=== PATIENT | female | born 1990 | race Caucasian/White ===

== ENCOUNTER → 2018-05-31 | Outpatient (CLI) | payer SELFPAY ==
[2018-05-31 12:20] LABS: HCT 35.9 % (34.0-46.0); HGB 11.6 gm/dL (11.4-16.0); MCH 27.8 pg (25.0-35.0); MCHC 32.3 g/dL (31.0-37.0); MCV 86.1 fL (80.0-100.0); Mean Platelet Volume 7.1; Platelet Count 195 k/uL (150-450); RBC 4.17 m/uL (3.80-5.40); RDW 13.3 % (11.5-15.5); WBC 10.1 k/uL (3.8-10.6)
== END | disposition home or self-care (01) ==
LOC: LABWHC1 11:03
PROVIDERS: ATTEND Obstetrics & Gynecology
DX: Z34.02 Encounter for supervision of normal first pregnancy, second trimester (principal); Z3A.00 Weeks of gestation of pregnancy not specified
CPT/HCPCS: 36415; 82950; 85027

== ENCOUNTER 2018-06-11 10:38 | Outpatient (CLI) | payer SELFPAY ==
[2018-06-11 11:14] VITALS: BP 117/59; PULSE 83; RESP 18; TEMP 98.8
--- NOTE | 2018-06-12 06:41 | P.MSEPDOC ---
Presenting Problems - Arrival Data Date of Arrival on Unit: 06/11/18 Time of Arrival on Unit: 11:00 Mode of Transport: Ambulatory - Complaint OB-Reason for Admission/Chief Complaint: Vaginal Bleeding Comment: pt arrived c/o brownish red discharge or spotting when she wipes. pt has had intercourse within the last couple of days Medical History - Information : 2 Para: 1 Term: 1 : 0 Abortions: Spontaneous or Elective: 0 Number of Living Children: 1 - Gestational Age Gestational Age by LIVE (wks/days): 29 Weeks and 6 Days - History Complications: Smoker Review of Systems - Review of Systems Constitutional: No problems Breast: No problems ENT: No problems Cardiovascular: No problems Respiratory: No problems Gastrointestinal: No problems Genitourinary: No problems Musculoskeletal: No problems Neurological: No problems Skin: No problems Vital Signs - Temperature Temperature: 98.8 F Temperature Source: Oral - Pulse Right Brachial Pulse Rate: 83 Pulse Assessment Method: Automatic Cuff - Respirations Respiratory Rate: 18 Oxygen Delivery Method: Room Air O2 Sat by Pulse Oximetry: 97 - Blood Pressure Right Arm Blood Pressure: 117/59 Blood Pressure Mean: 78 Blood Pressure Source: Automatic Cuff Medical Screen Scoring (Pre) - Cervical Exam Dilation: 0 cm = 0 Membranes: Intact - Uterine Contractions Frequency: N/A Duration: N/A Intensity: N/A - Maternal Vital Signs Maternal Temperature: N/A Maternal Blood Pressure: N/A Signs of Preeclampsia: N/A Maternal Respirations: N/A - Pain Assessment Pain Scale Used: Numeric (1 - 10) Pain Intensity: 1 Pain Management Goal: 1 Pain Behavior: Vocalization - Maternal Trauma Maternal Trauma: N/A - Assessment Baseline FHR: 130 Heart Rate - NICHD Category: Category I (Normal) = 0 NST: Reactive Position: N/A Station: N/A - Total Score Total Score (Pre): 0 - Level of Risk Level of Risk: Low (0-5) Physician Notification (Pre) - Physician Notified Physician Notified Date: 06/11/18 Physician Notified Time: 11:50 Spoke With: dr joya New Order Received: Yes - Notification Comment Comment: may discharge to home after watching for 1 hr and have pt f/u on Disposition - Disposition OB Disposition: Discharge to home Discharge Date: 06/11/18 Discharge Time: 12:35 I agree with the RN Medical Screening Exam: Yes Risk & Benefit of care provided described in d/c instruction: Yes Diagnosis: FALSE LABOR BEFORE 37 COMPLETED WEEKS OF GEST, THIRD TRI
== END 2018-06-11 12:35 | disposition home or self-care (01) ==
LOC: FBPOP 10:38
PROVIDERS: ATTEND Obstetrics & Gynecology
DX: O47.03 False labor before 37 completed weeks of gestation, third trimester (principal); O99.333 Smoking (tobacco) complicating pregnancy, third trimester; Z3A.29 29 weeks gestation of pregnancy
CPT/HCPCS: 59025; 99213

== ENCOUNTER 2018-08-14 06:01 | Inpatient (IN) | payer BC, OTHER ==
--- NOTE | 2018-08-13 07:06 | P.HPOB ---
History of Present Illness H&P Date: 08/13/18 Chief Complaint: Recent herpes outbreak at term, for section This patient is a pleasant 28-year-old 2 para 1 female estimated date of confinement 08/21/2018 estimated gestational age 39-0/7 weeks who presents to labor and delivery for primary section secondary to recent herpes outbreak. Patient is a known history of genital herpes was placed on prophylactic antivirals at 36 weeks. Patient however developed in active herpes outbreak approximately 2 weeks ago. Patient I discussed recent outbreak and current recommendations are to proceed with section for delivery. Patient's care has also been complicated by a positive chlamydial culture with a negative test of cure. Otherwise is been uncomplicated. Review of Systems Gastrointestinal: Reports heartburn Genitourinary: Reports Menstruation: Reports amenorrhea Past Medical History Past Medical History: No Reported History History of Any Multi-Drug Resistant Organisms: None Reported Past Surgical History: Appendectomy Past Anesthesia/Blood Transfusion Reactions: No Reported Reaction Past Psychological History: No Psychological Hx Reported Smoking Status: Current every day smoker Past Alcohol Use History: None Reported Past Drug Use History: None Reported Medications and Allergies Home Medications Medication Instructions Recorded Confirmed Type Pnv No.95/Ferrous Fum/Folic AC 1 each PO 06/11/18 History [ Multivitamin Tablet] Allergies Allergy/AdvReac Type Severity Reaction Status Date / Time No Known Allergies Allergy Verified 06/11/18 11:04 Exam - OBG Physical Exam Abdomen: bowel sounds normal, no diffuse tenderness, no bruit present, no guarding noted, no hepatomegaly, no splenomegaly, no mass Vulva: both: normal Vagina: normal moisture, no discharge Cervix: no lesion (Cervix in the office was closed.), no discharge Uterus: enlarged (Fundal height is consistent with a term .) Results blood work shows she is O positive, rubella immune, RPR is nonreactive , hepatitis B is negative, HIV is nonreactive, Glucola was normal, group B strep was negative, she did have a first trimester positive chlamydia with a negative test of cure 2. Ultrasounds have been normal. Assessment and Plan Assessment: This is a pleasant 28-year-old 2 para 1 female 39-0/7 weeks gestation with recent genital herpes infection who is presenting for primary section secondary to this. Patient I discussed the surgery and risks including risks of infection, bleeding, possible injury bowel, bladder, vessels, and other organs. Patient understands risk of DVT and pulmonary embolism. All the patient's questions are answered and a written consent is obtained. (1) Third trimester Status: Acute Code(s): Z34.93 - ENCNTR FOR SUPRVSN OF NORMAL PREG, UNSP, THIRD TRIMESTER SNOMED Code(s): 56421569 (2) Genital herpes affecting in third trimester Status: Acute Code(s): O98.313 - OTH INFECT W SEXL MODE OF TRANSMISS COMP PREG , THIRD TRI; A60.09 - HERPESVIRAL INFECTION OF OTHER UROGENITAL TRACT SNOMED Code(s): 522411590692170
[2018-08-14 06:13] VITALS: BMI 27.8
[2018-08-14] MEDS ORDERED: LACTATED RINGERS 1,000 ML IV SCH ×2 (06:13→09:39)
[2018-08-14] MEDS ORDERED: CITRIC ACID-SODIUM CITRATE 15 ML CUP PO ONE (06:13)
[2018-08-14] MEDS ORDERED: LACTATED RINGERS 1,000 ML IV ONE (06:13)
[2018-08-14 06:30] LABS: Basophils % (A) 0 %; Eosinophils # (A) 0.1 k/uL (0-0.7); Eosinophils % (A) 1 %; HGB 12.6 gm/dL (11.4-16.0); Lymphocytes # (A) 2.1 k/uL (1.0-4.8); Lymphocytes % (A) 20 %; MCH 27.6 pg (25.0-35.0); MCV 83.7 fL (80.0-100.0); Mean Platelet Volume 7.9; Monocytes # (A) 0.4 k/uL (0-1.0); Monocytes % (A) 3 %; Neutrophils # (A) 7.6 k/uL (1.3-7.7); Neutrophils % (A) 73 %; Platelet Count 210 k/uL (150-450); RBC 4.54 m/uL (3.80-5.40); RDW 13.9 % (11.5-15.5); WBC 10.4 k/uL (3.8-10.6)
[2018-08-14] MEDS ORDERED: ceFAZolin IN SWFI 2 GM/20 ML SYRINGE IVP ONE (07:15)
[2018-08-14] MEDS ORDERED: NALBUPHINE 10 MG/ML VIAL (10ML MDV) ONE (07:50)
[2018-08-14] MEDS ORDERED: DEXAMETHASONE SOD PHOS (MDV) 100 MG/10 ML VIAL ONE (07:50)
[2018-08-14] MEDS ORDERED: ePHEDrine SULFATE/0.9% NACL/PF 50 MG/5 ML SYRINGE IV ONE (07:50)
[2018-08-14] MEDS ORDERED: HYDROmorphone (PF) 1 MG/ML ONE (07:50)
[2018-08-14] MEDS ORDERED: KETOROLAC 30 MG/ML 1 ML VIAL ONE (07:50)
[2018-08-14] MEDS ORDERED: OXYTOCIN 10 UNIT/ML 1 ML VIAL ONE (07:50)
[2018-08-14] MEDS ORDERED: MORPHINE SULFATE (PF) 0.3 MG/0.3 ML SYR ONE (07:50)
[2018-08-14] MEDS ORDERED: ONDANSETRON 4 MG/2 ML VIAL ONE (07:50)
--- NOTE | 2018-08-14 08:36 | P.OP ---
Date of Procedure: 08/14/18 Preoperative Diagnosis: #1: 39 3/7 weeks . #2: Recent genital HSV outbreak Postoperative Diagnosis: Same Procedure(s) Performed: Primary low transverse section Anesthesia: spinal Surgeon: Yuri Arango Senior Asset Manager #1: Pallavi Bro Estimated Blood Loss (ml): 600 Pathology: other (Placenta) Condition: stable Disposition: floor Indications for Procedure: Please see dictated H&P for intimate details of this patient's admission. Brief summary is a pleasant 28-year-old 2 para 1 female 39-3/7 weeks gestation admitted to labor and delivery for primary section secondary to recent active herpes outbreak. Patient understands this surgery and risks including risks of infection, bleeding, possible injury bowel, bladder, vessels , and/or other organs. Patient understands risk of DVT and pulmonary embolism. All the patient's questions are answered and a written consent is obtained. Operative Findings: As a vigorous viable female infant Apgars 8 and 9 delivery time was 0807 hrs. Description of Procedure: This patient has a Garcia catheter placed to straight drain. She is subsequently taken to the operating room where she sat up and spinal anesthetic is administered without incident. With an adequate level of anesthesia she has abdominal prep and drape. Scalpels and taken Pfannenstiel skin incision is made. A second scalpel is taken down the fascia and the fascia scored with a knife. Fascial incision extended bilaterally using the Blount scissors. Fascia is dissected off the rectus muscles sharply and the rectus muscles are . The peritoneum was then identified and entered sharply. Peritoneal incision extended superior and inferior without difficulty. Bladder blade is then placed. Bladder peritoneum was taken off the lower uterine segment sharply. Scalpels and taken low transverse uterine incision is then made. Using a hemostat I into the uterine cavity bluntly and there is loss of clear fluid. This incision is extended bluntly. Infant's head is then guided through the incision with fundal pressure the mouth and nares are bulb suctioned. There is no evidence of nuchal cord. We then have delivery the rest this infant's body. This is a vigorous viable female Apgars are 8 and 9 delivery time was 0807 hrs. After delivery of the the umbilical cord is doubly clamped and cut is handed off to the nurses in attendance. Cord blood is obtained. Placenta is manually extracted intact. Uterus is then externalized and uterine incision demarcated with Maurice clamps and closed using 0 Vicryl running locked fashion 2 layers. Excellent hemostasis is noted bladder peritoneum was then closed using a 3-0 Vicryl in the usual fashion. The excess fluid is removed from the abdomen and pelvis. Uterus placed back into the abdomen. Parietal peritoneum was then closed using a 0 Vicryl running fashion. Rectus muscles are reapproximated using 0 Vicryl interrupted fashion. Fascia is then closed using an 0 PDS in a running fashion. Fascial incision is intact and hemostatic. Subcutaneous tissues and closed using a 3-0 Vicryl. Skin is and closed using chantel. All counts are correct 3. There are no complications. Patient is taken to her birthing suite in satisfactory condition.
[2018-08-14] MEDS ORDERED: NALOXONE 0.4 MG/ML 1 ML VIAL IV PRN (09:39)
[2018-08-14] MEDS ORDERED: METOCLOPRAMIDE 5 MG/ML 2 ML VIAL IVP PRN (09:39)
[2018-08-14] MEDS ORDERED: ZOLPIDEM 5 MG TAB PO PRN (09:39)
[2018-08-14] MEDS ORDERED: LANOLIN CREAM 5 GM TUBE TOPICAL PRN (09:39)
[2018-08-14] MEDS ORDERED: diphenhydrAMINE 25 MG CAP PO PRN (09:39)
[2018-08-14] MEDS ORDERED: KETOROLAC 30 MG/ML 1 ML VIAL IVP PRN (09:39)
[2018-08-14] MEDS ORDERED: SIMETHICONE 80 MG CHEWABLE PO PRN (09:39)
[2018-08-14] MEDS ORDERED: diphenhydrAMINE 50 MG/ML 1 ML VIAL IVP PRN (09:39)
[2018-08-14] MEDS ORDERED: ACETAMINOPHEN TAB 325 MG TAB PO PRN (09:39)
[2018-08-14] MEDS ORDERED: ONDANSETRON 4 MG/2 ML VIAL IVP PRN (09:39)
[2018-08-14] MEDS ORDERED: OXYTOCIN 20 UNITS/1000 ML NS 1,000 ML IV SCH (09:39)
[2018-08-14] MEDS: SENNOSIDES-DOCUSATE SODIUM 1 EACH TAB PO SCH ×2 (12:59→20:28)
[2018-08-15] MEDS: HYDROcodone/APAP 5-325MG 1 EACH TAB PO PRN ×3 (03:54→20:29)
--- NOTE | 2018-08-15 06:30 | P.PNOBGPC ---
Subjective - Subjective Patient reports: Reports appetite normal, Reports voiding normally, Reports pain well controlled, Reports ambulating normally : doing well Objective - Vital Signs Latest vital signs: Vital Signs Temp Pulse Resp BP Pulse Ox 08/15/18 04:00 77 16 110/67 08/15/18 00:00 82 16 126/81 08/14/18 20:00 97.8 F 95 16 132/86 99 08/14/18 16:00 97.5 F L 75 16 125/68 98 08/14/18 12:00 97.6 F 76 16 129/77 99 08/14/18 10:27 77 16 128/72 08/14/18 10:01 96.7 F L 70 16 127/78 08/14/18 09:31 65 16 130/73 08/14/18 09:16 60 16 120/67 08/14/18 09:01 63 16 127/70 08/14/18 08:46 96.8 F L 66 16 125/66 08/14/18 08:31 83 16 125/70 Intake and Output 08/14/18 08/14/18 08/15/18 14:59 22:59 06:59 Output Total 900 1400 Balance -900 -1400 Output: Urine 550 1400 Uretheral (Garcia) 400 Estimated Blood Loss 350 Other: # Voids 1 # Emeses 1 - Exam Lungs: bilateral: normal Chest: Normal S1, Normal S2 Extremities: Present: normal Abdomen: Present: normal appearance, soft. Absent: distention, tenderness Incision: Present: normal, dry, intact Uterus: Present: normal, firm Assessment and Plan Assessment: Post operative day #1. Patient is resting without complaints. Vital signs are stable she is afebrile. Uterus is firm nontender and her incision is intact and dry. Patient is tolerating regular diet and urinating without difficulty. Plan today is to allow the patient to shower, check a CBC, encourage more ambulation. (1) Third trimester Current Visit: No Status: Acute Code(s): Z34.93 - ENCNTR FOR SUPRVSN OF NORMAL PREG, UNSP, THIRD TRIMESTER SNOMED Code(s): 53441019 (2) Genital herpes affecting in third trimester Current Visit: No Status: Acute Code(s): O98.313 - OTH INFECT W SEXL MODE OF TRANSMISS COMP PREG, THIRD TRI; A60.09 - HERPESVIRAL INFECTION OF OTHER UROGENITAL TRACT SNOMED Code(s): 414899442910213
[2018-08-15 07:06] LABS: Basophils % (A) 0 %; Eosinophils # (A) 0.1 k/uL (0-0.7); Eosinophils % (A) 0 %; HCT 32.7 % (34.0-46.0); HGB 10.7 gm/dL (11.4-16.0); Lymphocytes # (A) 1.9 k/uL (1.0-4.8); Lymphocytes % (A) 13 %; MCH 27.6 pg (25.0-35.0); MCHC 32.7 g/dL (31.0-37.0); MCV 84.6 fL (80.0-100.0); Monocytes # (A) 0.4 k/uL (0-1.0); Monocytes % (A) 3 %; Neutrophils # (A) 12.3 k/uL (1.3-7.7); Neutrophils % (A) 83 %; Platelet Count 191 k/uL (150-450); RBC 3.87 m/uL (3.80-5.40); RDW 13.8 % (11.5-15.5); WBC 14.9 k/uL (3.8-10.6)
[2018-08-15] MEDS: IBUPROFEN 600 MG TAB PO PRN ×2 (08:08→17:23)
[2018-08-15] MEDS: SENNOSIDES-DOCUSATE SODIUM 1 EACH TAB PO SCH ×2 (08:10→23:14)
--- NOTE | 2018-08-15 13:11 | P.PN ---
Progress Note - Text Anesthesia POD 1. Patient is status post section under spinal anesthesia with intra-thecal preservative free morphine 300 g. Mild pruritus, good post-op analgesia, and no headache or other complication.
[2018-08-15 23:54] VITALS: BP 123/73; PULSE 86; RESP 18; TEMP 98.2
[2018-08-16] MEDS: IBUPROFEN 600 MG TAB PO PRN (00:57)
--- NOTE | 2018-08-16 05:57 | P.PNOBGPC ---
Subjective - Subjective Patient reports: Reports appetite normal, Reports voiding normally, Reports pain well controlled, Reports ambulating normally : doing well Objective - Vital Signs Latest vital signs: Vital Signs Temp Pulse Resp BP Pulse Ox 08/15/18 23:52 98.2 F 86 18 123/73 99 08/15/18 16:00 98.7 F 96 16 125/81 98 08/15/18 12:00 98.8 F 76 17 121/61 98 08/15/18 08:00 98.3 F 87 16 135/81 98 Intake and Output 08/15/18 08/15/18 08/16/18 14:59 22:59 06:59 Other: # Voids 1 1 1 # Bowel Movements 0 0 - Exam Lungs: bilateral: normal Chest: Normal S1, Normal S2 Extremities: Present: normal Abdomen: Present: normal appearance, soft. Absent: distention, tenderness Incision: Present: normal, dry, intact Uterus: Present: normal, firm - Labs Labs: Abnormal Lab Results - Last 24 Hours (Table) 08/15/18 Range/Units 06:37 WBC 14.9 H (3.8-10.6) k/uL Hgb 10.7 L (11.4-16.0) gm/dL Hct 32.7 L (34.0-46.0) % Neutrophils # 12.3 H (1.3-7.7) k/uL Assessment and Plan Assessment: Postoperative day #2. Patient is resting without complaints and wishes to go home. Vital signs are stable she is afebrile. Uterus is firm nontender her incision is intact and dry. CBC yesterday was normal. I impression this is a normal course. Plan is to continue routine postoperative care discharge home later today. (1) Third trimester Current Visit: No Status: Acute Code(s): Z34.93 - ENCNTR FOR SUPRVSN OF NORMAL PREG, UNSP, THIRD TRIMESTER SNOMED Code(s): 94957957 (2) Genital herpes affecting in third trimester Current Visit: No Status: Acute Code(s): O98.313 - OTH INFECT W SEXL MODE OF TRANSMISS COMP PREG, THIRD TRI; A60.09 - HERPESVIRAL INFECTION OF OTHER UROGENITAL TRACT SNOMED Code(s): 598759875130792
--- NOTE | 2018-08-16 06:03 | P.DS ---
Providers Date of admission: 08/14/18 06:01 Expected date of discharge: 08/16/18 Attending physician: Yuri Arango Primary care physician: Stated None - Discharge Diagnosis(es) (1) Third trimester Current Visit: No Status: Acute (2) Genital herpes affecting in third trimester Current Visit: No Status: Acute Hospital Course: Please see dictated H&P for intimate details of this patient's admission. Brief summary this is a pleasant 28-year-old 2 para 1 female 39-3/7 weeks gestation who is admitted to labor and delivery for elective section secondary to active herpes at term. Patient undergoes primary low transverse section for viable female infant. Please see dictated operative note. Postoperative 2 patient's felt be stable for discharge home follow up with me in 1 week. Patient Condition at Discharge: Good Plan - Discharge Summary New Discharge Prescriptions: New HYDROcodone/APAP 5-325MG [[place] 5-325] 1 each PO Q4HR PRN #18 tab PRN Reason: Moderate Pain Ibuprofen [Motrin] 600 mg PO Q6HR PRN #40 tab PRN Reason: Mild Pain Or Fever >= 100.5 No Action Pnv No.95/Ferrous Fum/Folic AC [ Multivitamin Tablet] 1 each PO ONCE Acyclovir 1 tab PO ONCE Discharge Medication List Pnv No.95/Ferrous Fum/Folic AC [ Multivitamin Tablet] 1 each PO ONCE 01/23 [History] Acyclovir 1 tab PO ONCE 08/14/18 [History] HYDROcodone/APAP 5-325MG [[place] 5-325] 1 each PO Q4HR PRN #18 tab 08/16/18 [Rx] Ibuprofen [Motrin] 600 mg PO Q6HR PRN #40 tab 08/16/18 [Rx] Follow up Appointment(s)/Referral(s): Yuri Arango MD [STAFF PHYSICIAN] - 08/23/18 8:30 am (Patient also has a visit of September 27 at 8:45 AM.) Patient Instructions/Handouts: (DC) Activity/Diet/Wound Care/Special Instructions: No heavy lifting or strenuous activity for 6 weeks. Please call if any fever, chills, excessive vaginal bleeding, and/or abdominal pain. Discharge Disposition: HOME SELF-CARE
[2018-08-16] MEDS: HYDROcodone/APAP 5-325MG 1 EACH TAB PO PRN (07:59)
== END 2018-08-16 10:02 | disposition home or self-care (01) | DRG 788 ==
LOC: 4FBP 06:01
PROVIDERS: ADMIT Obstetrics & Gynecology; ATTEND Obstetrics & Gynecology
PROC: 10D00Z1 Extraction of Products of Conception, Low, Open Approach (ICD-10-PCS; principal; 2018-08-14 08:00)
DX: O98.32 Other infections with a predominantly sexual mode of transmission complicating childbirth (principal); A60.09 Herpesviral infection of other urogenital tract; F17.200 Nicotine dependence, unspecified, uncomplicated; O99.334 Smoking (tobacco) complicating childbirth; Z37.0 Single live birth; Z3A.39 39 weeks gestation of pregnancy
CPT/HCPCS: 85025; 86850; 86900; 86901; 88307

== ENCOUNTER → 2022-02-21 | Outpatient (CLI) | payer OTHER ==
--- NOTE | 2022-02-21 19:34 | US ---
EXAMINATION TYPE: Ultrasound OB <= 14 week fetus DATE OF EXAM: 02/21/2022 12:49 PM COMPARISON: NONE CLINICAL HISTORY: 31-year-old female Z36.89 CONFIRM GESTATIONAL AGE. Confirm dates EXAM PERFORMED: Transabdominal (TA) FINDINGS: EXAM MEASUREMENTS: GESTATIONAL AGE / DATING Physician Established: Not yet established Dates by LMP: LMP unknown Dates by First Scan: No previous this is first scan Dates by Current Scan for: (7 weeks/4 days) EDC: 10/06/2022 MATERNAL ANATOMY Uterus: 12.4 x 4.5 x 7.1cm Right Ovary: 3.5 x 2.3 x 3.1cm Left Ovary: 2.6 x 1.3 x 2.4cm Post CDS / Adnexa: wnl Presence of free fluid: no Presence of corpus luteal cyst: right ovary: 2.1 x 2.1 x 2.2cm Presence of subchorionic bleed: no GESTATION / SURVEY CRL: 1.3cm (7 weeks/4 days) Yolk Sac (normal less than 6mm): 3.3mm Heart Rate: 167 bpm Rhythm: Normal IUP: Viable IUP IMPRESSION: 1. Single live intrauterine with gestational age of 7 weeks 4 days by crown-rump length. 2. Complete survey recommended at 18-20 weeks.
== END | disposition home or self-care (01) ==
LOC: RADUSWWP 12:17
PROVIDERS: ATTEND Obstetrics & Gynecology
DX: Z36.89 Encounter for other specified antenatal screening (principal); Z3A.01 Less than 8 weeks gestation of pregnancy
CPT/HCPCS: 76801

== ENCOUNTER 2022-08-05 09:34 | Outpatient (CLI) | payer OTHER ==
[2022-08-05 10:47] VITALS: BP 130/76; PULSE 109; RESP 16; TEMP 97.6
--- NOTE | 2022-09-04 07:52 | P.MSEPDOC ---
Presenting Problems - Arrival Data Date of Arrival on Unit: 08/05/22 Time of Arrival on Unit: 09:34 Mode of Transport: Ambulatory - Complaint OB-Reason for Admission/Chief Complaint: Vaginal Bleeding Medical History - Information : 5 Para: 2 Term: 2 : 0 Abortions: Spontaneous or Elective: 2 Number of Living Children: 2 - Gestational Age Gestational Age by LIVE (wks/days): 31 Weeks and 6 Days - History Complications: Prior Review of Systems - Review of Systems Constitutional: No problems Breast: No problems ENT: No problems Cardiovascular: No problems Respiratory: No problems Gastrointestinal: No problems Genitourinary: No problems Musculoskeletal: No problems Neurological: No problems Skin: No problems Vital Signs - Temperature Temperature: 97.6 F Temperature Source: Temporal Artery Scan - Pulse Brachial Pulse Rate: 109 Pulse Assessment Method: Automatic Cuff - Respirations Respiratory Rate: 16 Oxygen Delivery Method: Room Air O2 Sat by Pulse Oximetry: 96 - Blood Pressure Right Arm Blood Pressure: 130/76 Blood Pressure Mean: 94 Blood Pressure Source: Automatic Cuff Medical Screen Scoring - Cervical Exam Dilation (cm): 0 Effacement (%): 0 Station: -3 Membranes: Intact - Assessment - Baby A Baseline FHR: 140 Heart Rate - NICHD Category: Category I (Normal) NST: Reactive Physician Notification - Physician Notified Physician Notified Date: 08/05/22 Physician Notified Time: 10:15 Physician: Jo Reed New Order Received: Yes Maternal Triage Index - Urgent/Priority 2 Urgent Priority 2: Yes Provider Notified: Jo Reed Provider Notified Time: 10:15 Criteria Met for Priority 2: 31 6/7 and spotting at home, no visible blood in triage with speculum Disposition - Disposition OB Disposition: Triage Discharge Date: 08/05/22 Discharge Time: 10:30 I agree with the RN Medical Screening Exam: Yes Case reviewed; plan agreed upon as documented in EMR&OBIX.: Yes Diagnosis: SPOTTING COMPLICATING , THIRD TRIMESTER
== END 2022-08-05 10:25 | disposition home or self-care (01) ==
LOC: FBPOP 09:34
PROVIDERS: ATTEND Obstetrics & Gynecology
DX: O26.853 Spotting complicating pregnancy, third trimester (principal); Z3A.31 31 weeks gestation of pregnancy; F17.200 Nicotine dependence, unspecified, uncomplicated
CPT/HCPCS: 59025; G0463; 84112; 99213; 99215

== ENCOUNTER 2022-09-25 05:59 | Inpatient (IN) | payer OTHER ==
[2022-09-19 11:47] VITALS: BMI 29.1
--- NOTE | 2022-09-24 14:57 | P.HPOB ---
History of Present Illness H&P Date: 09/24/22 Chief Complaint: Repeat C/S and tubal ligation This patient is a pleasant 32 yr female estimated gestational age 39 wk 10/14 who presents to L&D requesting repeat section and also permanent sterilization. She had her first baby vaginally, but required a C/S for her second child due to an active HSV infection. She was counseled about vs repeat C/S and she desires repeat C/S. She did have a choroid plexus cyst which resolved; has been otherwise uncomplicated. Review of Systems Genitourinary: Reports Menstruation: Reports amenorrhea Past Medical History Past Medical History: No Reported History Additional Past Medical History / Comment(s): Heartburn. Migraines. Insomnia. History of Any Multi-Drug Resistant Organisms: None Reported Past Surgical History: Appendectomy, Section Additional Past Surgical History / Comment(s): Section X1. Past Anesthesia/Blood Transfusion Reactions: No Reported Reaction, Motion Sickness Past Psychological History: No Psychological Hx Reported Smoking Status: Former smoker Past Alcohol Use History: Occasional Additional Past Alcohol Use History / Comment(s): Quit smoking December 2021, had smoked since age 17, 1/2 ppd. No alcohol since . Past Drug Use History: None Reported - Past Family History Mother Family Medical History: No Reported History Medications and Allergies Home Medications Medication Instructions Recorded Confirmed Type Pnv No.95/Ferrous Fum/Folic AC 1 each PO DAILY 06/11/18 09/19/22 History [ Multivitamin Tablet] Allergies Allergy/AdvReac Type Severity Reaction Status Date / Time No Known Allergies Allergy Verified 09/19/22 11:40 Exam - OBG Physical Exam Abdomen: bowel sounds normal, no diffuse tenderness, no bruit present, no guarding noted, no hepatomegaly, no splenomegaly, no mass Vulva: both: normal Vagina: normal moisture, no discharge Cervix: no lesion, no discharge Uterus: enlarged Results labs: O positive, Rubella Immune, [id number] neg, Glucola 161 with normal 3hr GTT. Last ultrasound showed EFW 6#11oz (75-90%) LGA. GBS negative. Assessment and Plan Assessment: This is a pleasant 32 yr female 39 1/7 weeks gestation who presents for repeat section and also requesting permanent sterilization. Plan is repeat section and bilateral partial salpingectomy. She understands that a tubal ligation is permanent, however does have a failure of <02/1000 procedures done. She also understands the risks of surgery including risks of infection, bleeding, possible injury to bowel/bladder/vessels and/or other organs. All of her questions were answered and a written consent obtained. (1) 39 weeks gestation of Status: Acute Code(s): Z3A.39 - 39 WEEKS GESTATION OF SNOMED Code(s): 66305002 (2) Previous delivery affecting Status: Acute Code(s): O34.219 - MATERNAL CARE FOR UNSP TYPE SCAR FROM PREVIOUS DEL SNOMED Code(s): 483161405 (3) Family planning Status: Acute Code(s): Z30.09 - ENCOUNTER FOR OTH GENERAL CNSL AND ADVICE ON CONTRACEPTION SNOMED Code(s): 625780724
[2022-09-25] MEDS ORDERED: LACTATED RINGERS 1,000 ML IV SCH (06:17)
[2022-09-25] MEDS ORDERED: CITRIC ACID-SODIUM CITRATE 15 ML CUP PO ONE (06:17)
[2022-09-25] MEDS ORDERED: LACTATED RINGERS 1,000 ML IV ONE (06:17)
[2022-09-25 06:42] LABS: Basophils % (A) 0 %; Eosinophils % (A) 0 %; HCT 35.9 % (34.0-46.0); HGB 12.4 gm/dL (11.4-16.0); Lymphocytes # (A) 1.3 k/uL (1.0-4.8); Lymphocytes % (A) 16 %; MCH 28.9 pg (25.0-35.0); MCHC 34.7 g/dL (31.0-37.0); MCV 83.4 fL (80.0-100.0); Mean Platelet Volume 10.9; Monocytes # (A) 0.4 k/uL (0-1.0); Monocytes % (A) 5 %; Neutrophils # (A) 6.5 k/uL (1.3-7.7); Neutrophils % (A) 77 %; Platelet Count 173 k/uL (150-450); RDW 13.8 % (11.5-15.5); WBC 8.4 k/uL (3.8-10.6)
[2022-09-25] MEDS ORDERED: DEXAMETHASONE SOD PHOS (MDV) 100 MG/10 ML VIAL ONE (07:46)
[2022-09-25] MEDS ORDERED: PHENYLEPHRINE-0.9% NACL SYG 1,000 MCG/10 ML SYRINGE ONE (07:46)
[2022-09-25] MEDS ORDERED: OXYTOCIN 30 UNITS/500 ML NS BAG IV ONE (07:46)
[2022-09-25] MEDS ORDERED: ePHEDrine 50 MG/ML 1 ML VIAL ONE (07:46)
[2022-09-25] MEDS ORDERED: ONDANSETRON 4 MG/2 ML VIAL ONE (07:46)
[2022-09-25] MEDS ORDERED: MORPHINE SULFATE (PF) 0.3 MG/0.3 ML SYR ONE (07:46)
[2022-09-25] MEDS ORDERED: KETOROLAC 15 MG/ML 1 ML VIAL ONE (07:46)
[2022-09-25] MEDS ORDERED: NALBUPHINE 10 MG/ML (1 ML AMP) ONE (07:46)
[2022-09-25 08:14] LABS: Amphetamine Screen,Urine Not Detected (NotDetected); Barbiturate Screen,Urine Not Detected (NotDetected); Benzodiazepines Screen,Urine Not Detected (NotDetected); Cocaine Screen,Urine Not Detected (NotDetected); Methadone Screen, Urine Not Detected (NotDetected); Opiate Screen,Urine Not Detected (NotDetected); Oxycodone Screen, Urine Not Detected (NotDetected); Phencyclidine Screen,Urine Not Detected (NotDetected); Tricyclic Antidepressant,Urine Not Detected (NotDetected); Urn Cannabinoid Scrn Not Detected (NotDetected)
--- NOTE | 2022-09-25 08:39 | P.OP ---
Date of Procedure: 09/25/22 Preoperative Diagnosis: #1:39 and one sevenths week intrauterine . #2: Previous section desires repeat. #3: Multi parity desires permanent sterilization. Postoperative Diagnosis: Same, omental adhesions Procedure(s) Performed: #1:repeat low transverse section. #2: Bilateral partial salpingectomy Anesthesia: spinal Surgeon: Yuri Arango Inpatient Services Rn #1: Jo Reed Estimated Blood Loss (ml): 600 Pathology: other (bilateral fallopian tube segments) Condition: stable Disposition: PACU Indications for Procedure: Please see dictated H&P for intimate details of this patient's admission. In brief summary this is a pleasant 32-year-old 5 para 2 female 39 and one sevenths weeks gestation is admitted to labor and delivery for elective repeat section and also requesting permanent sterilization. Patient understands a tubal ligation is permanent however there is a failure rate of less than 5 per thousand procedures done. She understands surgery itself and apparently has risks including risks of infection, bleeding, possible injury bowel, bladder, vessels, and/or other organs. All the patient's questions are answered and a written consent is obtained. Operative Findings: this is a vigorous viable male Apgars 9 and 9 delivery time is 0802 hrs. Bilateral fallopian tubes and ovaries appear normal. There were some mild omental adhesions anteriorly. There was a band on the posterior uterus which looked benign. Description of Procedure: This has a Garcia catheter placed to straight drain. She is subsequently taken to the operating room where she is sat up and after appropriate timeout spinal anesthetic is achieved. Patient is laid in the supine position and has abdominal prep and drape. Scalpels then taken the previous Pfannenstiel incision is incised. A second scalpel is taken down to the fascia and the fascia scored with a knife. Fascial incision extended bilaterally using the Blount scissors. Fascia is then dissected off the rectus muscles sharply. The rectus muscles are and the peritoneum identified and entered sharply. Peritoneal incision extended superior and inferior without difficulty. There are some mild omental adhesions which are not obscuring our view. Bladder blade is then placed. Bladder peritoneum was taken off sharply off the lower uterine segment. Scalpels and taken a low transverse uterine incision is made. Using a hemostat I bluntly entered the uterine cavity is loss of clear fluid. Uterine incision is then extended bluntly infant's head is then guided through the incision. Mouth and nares are bulb suctioned. There is no evidence of a nuchal cord. With gentle fundal pressure we then have delivery the rest this infant's body. This is a vigorous viable male Apgars are 9 and 9 delivery time is 0802 hrs. After delivery of the the umbilical cord is doubly clamped and cut. Placenta is then spontaneously delivered intact. Uterus is then externalized. Uterine edges demarcated with Maurice clamps. Excess tissue is removed and the uterine cavity. Uterine cavity is then found to be clear of all debris. Uterine incision then closed using 0 Vicryl running locked fashion. This is done in 2 layers. Excellent hemostasis is noted. Then turned my attention left fallopian tube approximately 4 cm from the cornual insertion a small window is made to the mesial salpinx with Bovie cautery. Using a 2-0 silk I doubly ligate a 2 cm segment of the tube. This is excised and handed off to pathology. Cauterization is done of the tubal ends and good hemostasis is noted. Then turned my attention to the right side in similar technique remove a portion of the right tube. This completed excess fluid is removed from that and pelvis. Uterus placed back in the abdomen. Final inspection of the fallopian tube she'll be hemostatic as well as the uterine incision. Parietal peritoneum was then closed in 0 Vicryl running fashion. Rectus muscles reapproximated in 0 Vicryl interrupted fashion. Fascial incision is then closed using 0 PDS. Fascial incision is intact and hemostatic. The subcutaneous tissues and closed using a 3-0 Vicryl. Skin is and closed using chantel. All counts are correct 3. There are no complications. Infant and mother are taken birthing suite in satisfactory condition.
[2022-09-25] MEDS ORDERED: SIMETHICONE 80 MG CHEWABLE PO PRN (08:46)
[2022-09-25] MEDS ORDERED: METOCLOPRAMIDE 5 MG/ML 2 ML VIAL IVP PRN (08:46)
[2022-09-25] MEDS ORDERED: OXYTOCIN 30 UNITS/500 ML NS 30 UNIT in SALINE 1 500ML.BAG IV SCH (08:46)
[2022-09-25] MEDS ORDERED: ONDANSETRON 4 MG/2 ML VIAL IVP PRN (08:46)
[2022-09-25] MEDS ORDERED: diphenhydrAMINE 25 MG CAP PO PRN (08:46)
[2022-09-25] MEDS ORDERED: diphenhydrAMINE 50 MG/ML 1 ML VIAL IVP PRN (08:46)
[2022-09-25] MEDS ORDERED: NALOXONE 0.4 MG/ML 1 ML VIAL IV PRN ×2 (08:46→09:18)
[2022-09-25] MEDS ORDERED: LANOLIN CREAM 5 GM TUBE TOPICAL PRN (08:46)
[2022-09-25] MEDS ORDERED: ZOLPIDEM 5 MG TAB PO PRN (08:46)
[2022-09-25] MEDS ORDERED: MORPHINE SULFATE 2 MG/ML SYRINGE IVP PRN (09:18)
[2022-09-25] MEDS: LACTATED RINGERS 1,000 ML IV SCH ×2 (10:46→19:43)
[2022-09-25] MEDS: ACETAMINOPHEN TAB 500 MG TAB PO SCH ×3 (10:47→19:42)
[2022-09-25] MEDS: SENNOSIDES-DOCUSATE SODIUM 1 EACH TAB PO SCH ×2 (10:48→19:42)
[2022-09-25] MEDS: KETOROLAC 15 MG/ML 1 ML VIAL IVP SCH (13:52)
[2022-09-25] MEDS: IBUPROFEN 600 MG TAB PO SCH ×2 (13:53→23:57)
[2022-09-26] MEDS: IBUPROFEN 600 MG TAB PO SCH ×4 (00:10→20:05)
[2022-09-26] MEDS: LACTATED RINGERS 1,000 ML IV SCH ×2 (03:01→09:20)
[2022-09-26] MEDS: ACETAMINOPHEN TAB 500 MG TAB PO SCH ×3 (03:14→16:38)
--- NOTE | 2022-09-26 06:44 | P.PNOBGPC ---
Subjective - Subjective Patient reports: Reports appetite normal, Reports voiding normally, Reports pain well controlled, Reports ambulating normally : doing well Objective - Vital Signs Latest vital signs: Vital Signs Temp Pulse Resp BP Pulse Ox 09/26/22 04:00 98.2 F 85 16 121/80 97 09/26/22 00:00 98.6 F 90 16 118/84 96 09/25/22 20:00 98.5 F 97 14 125/85 94 L 09/25/22 18:00 16 96 09/25/22 16:00 97.5 F L 96 18 122/77 96 09/25/22 14:00 18 09/25/22 12:00 97.7 F 103 H 18 141/85 95 09/25/22 10:45 97.8 F 94 18 113/57 95 09/25/22 10:10 97.8 F 96 18 123/69 95 09/25/22 09:40 97.7 F 95 18 132/75 95 09/25/22 09:25 96 18 131/73 09/25/22 09:10 97.7 F 87 18 131/68 96 09/25/22 08:55 101 H 18 130/64 97 09/25/22 08:46 97 09/25/22 08:40 96.6 F L 104 H 18 122/68 97 Intake and Output 09/25/22 09/25/22 09/26/22 14:59 22:59 06:59 Output Total 900 150 500 Balance -900 -150 -500 Output: Urine 200 150 500 Straight 500 Emesis 100 Output, Quantitative 600 Blood Loss - Exam Lungs: bilateral: normal Chest: Normal S1, Normal S2 Extremities: Present: normal Abdomen: Present: normal appearance, soft. Absent: distention, tenderness Incision: Present: normal, dry, intact Uterus: Present: normal, firm Assessment and Plan Assessment: Post operative day #1. Patient is resting without new complaints. Vital signs are stable she is afebrile. Uterus is firm nontender her incision is intact and dry. CBC is pending at time of this dictation. Patient is urinating without difficulty. Plan today is to continue to advance diet, allow the patient to shower, check a CBC, and continue routine postoperative care. (1) 39 weeks gestation of Current Visit: No Status: Acute Code(s): Z3A.39 - 39 WEEKS GESTATION OF SNOMED Code(s): 06874134 (2) Previous delivery affecting Current Visit: No Status: Acute Code(s): O34.219 - MATERNAL CARE FOR UNSP TYPE SCAR FROM PREVIOUS DEL SNOMED Code(s): 017203468 (3) Family planning Current Visit: No Status: Acute Code(s): Z30.09 - ENCOUNTER FOR OTH GENERAL CNSL AND ADVICE ON CONTRACEPTION SNOMED Code(s): 559486142
[2022-09-26 07:06] LABS: Basophils % (A) 0 %; Eosinophils % (A) 0 %; HCT 32.3 % (34.0-46.0); HGB 11.1 gm/dL (11.4-16.0); Lymphocytes # (A) 1.3 k/uL (1.0-4.8); Lymphocytes % (A) 13 %; MCH 29.6 pg (25.0-35.0); MCHC 34.3 g/dL (31.0-37.0); MCV 86.2 fL (80.0-100.0); Mean Platelet Volume 10.6; Monocytes # (A) 0.3 k/uL (0-1.0); Monocytes % (A) 3 %; Neutrophils # (A) 8.6 k/uL (1.3-7.7); Neutrophils % (A) 82 %; Platelet Count 128 k/uL (150-450); RBC 3.75 m/uL (3.80-5.40); RDW 13.9 % (11.5-15.5); WBC 10.4 k/uL (3.8-10.6)
[2022-09-26] MEDS: KETOROLAC 15 MG/ML 1 ML VIAL IVP SCH ×2 (07:49)
[2022-09-26] MEDS: SENNOSIDES-DOCUSATE SODIUM 1 EACH TAB PO SCH ×2 (08:05→20:06)
--- NOTE | 2022-09-26 09:41 | P.PN ---
Progress Note - Text Progress Note Date: 09/26/22 Postop day 1 from under spinal anesthesia with intrathecal morphine given for postop pain management. Patient is doing well. Pain is well controlled. On visual analog scale 3/10 No itching present No nausea or vomiting reported. No Headache or weakness and numbness in the legs. No complications from spinal anesthesia.
[2022-09-27 01:19] VITALS: RESP 16
[2022-09-27] MEDS: ACETAMINOPHEN TAB 500 MG TAB PO SCH ×4 (01:19→15:03)
[2022-09-27] MEDS: IBUPROFEN 600 MG TAB PO SCH ×3 (01:20→12:21)
--- NOTE | 2022-09-27 06:52 | P.PNOBGPC ---
Subjective - Subjective Patient reports: Reports appetite normal, Reports voiding normally, Reports pain well controlled, Reports ambulating normally : doing well Objective - Vital Signs Latest vital signs: Vital Signs Temp Pulse Resp BP Pulse Ox 09/27/22 00:00 97.8 F 85 16 103/60 97 09/26/22 16:00 97.9 F 80 18 127/76 98 09/26/22 08:00 97.9 F 66 16 110/74 99 Intake and Output 09/26/22 09/26/22 09/27/22 14:59 22:59 06:59 Output Total 400 300 Balance -400 -300 Output: Urine 400 300 Other: # Voids 1 - Exam Lungs: bilateral: normal Chest: Normal S1, Normal S2 Extremities: Present: normal Abdomen: Present: normal appearance, soft. Absent: distention, tenderness Incision: Present: normal, dry, intact Uterus: Present: normal, firm - Labs Labs: Abnormal Lab Results - Last 24 Hours (Table) 09/26/22 Range/Units 06:35 RBC 3.75 L (3.80-5.40) m/uL Hgb 11.1 L (11.4-16.0) gm/dL Hct 32.3 L (34.0-46.0) % Plt Count 128 L (150-450) k/uL Neutrophils # 8.6 H (1.3-7.7) k/uL Assessment and Plan Assessment: Postoperative day #2. Patient is resting without complaints and wishes to go home. Vital signs are stable she is afebrile. Uterus is firm nontender she is having normal lochia. Incision is intact and dry. CBC yesterday was normal. Patient is tolerating regular diet, urinating, ambulating without difficulty. My impression is that this is a normal post operative course. Plan is to continue routine postoperative care discharge home later today. (1) 39 weeks gestation of Current Visit: No Status: Acute Code(s): Z3A.39 - 39 WEEKS GESTATION OF SNOMED Code(s): 37803763 (2) Previous delivery affecting Current Visit: No Status: Acute Code(s): O34.219 - MATERNAL CARE FOR UNSP TYPE SCAR FROM PREVIOUS DEL SNOMED Code(s): 016586544 (3) Family planning Current Visit: No Status: Acute Code(s): Z30.09 - ENCOUNTER FOR OTH GENERAL CNSL AND ADVICE ON CONTRACEPTION SNOMED Code(s): 931250039
--- NOTE | 2022-09-27 07:00 | P.DS ---
Providers Date of admission: 09/25/22 05:59 Expected date of discharge: 09/27/22 Attending physician: Yuri Arango Primary care physician: Stated None - Discharge Diagnosis(es) (1) 39 weeks gestation of Current Visit: No Status: Acute (2) Previous delivery affecting Current Visit: No Status: Acute (3) Family planning Current Visit: No Status: Acute Hospital Course: Please see dictated H&P for intimate details of this patient's admission. Brief summary this is a pleasant 32-year-old 5 para 2 female estimated gestational age 39 and one sevenths weeks is admitted to labor and delivery for elective repeat section and also requesting permanent sterilization. Patient undergoes a repeat low transverse section and bilateral partial salpingectomy for a viable male infant. Please see dictated operative note. Postoperative patient does well postoperative 2 felt be stable for discharge home follow up with me in 1 week. Procedures: Repeat low transverse section and bilateral partial salpingectomy Plan - Discharge Summary Discharge Rx Participant: Yes New Discharge Prescriptions: New oxyCODONE HCL [OxyIR] 5 mg PO Q4HR PRN #18 tab PRN Reason: Pain Scale 4 - 6 Ibuprofen [Motrin] 600 mg PO Q6H #30 tab No Action Pnv No.95/Ferrous Fum/Folic AC [ Multivitamin Tablet] 1 each PO DAILY Discharge Medication List Pnv No.95/Ferrous Fum/Folic AC [ Multivitamin Tablet] 1 each PO DAILY 06/11/18 [History] Ibuprofen [Motrin] 600 mg PO Q6H #30 tab 09/27/22 [Rx] oxyCODONE HCL [OxyIR] 5 mg PO Q4HR PRN #18 tab 09/27/22 [Rx] Follow up Appointment(s)/Referral(s): Yuri Arango MD [STAFF PHYSICIAN] - 1 Week (Please see me for an incision check on 10-03-2022 @9:15 Also there is a visit on 11-06-2022 @9:45) Patient Instructions/Handouts: (DC) Activity/Diet/Wound Care/Special Instructions: No heavy lifting or strenuous activity for 6 weeks. No intercourse or anything per vagina for 6 weeks. Please call if any fever, chills, excessive vaginal bleeding, and/or abdominal pain Discharge Disposition: HOME SELF-CARE
[2022-09-27 09:11] VITALS: BP 119/68; PULSE 93; TEMP 98.3
[2022-09-27] MEDS: SENNOSIDES-DOCUSATE SODIUM 1 EACH TAB PO SCH (12:52)
== END 2022-09-27 15:00 | disposition home or self-care (01) | DRG 784 ==
LOC: 4FBP 05:59
PROVIDERS: ADMIT Obstetrics & Gynecology; ATTEND Obstetrics & Gynecology
PROC: 0UB70ZZ Excision of Bilateral Fallopian Tubes, Open Approach (ICD-10-PCS; 2022-09-25)
PROC: 0DNU0ZZ Release Omentum, Open Approach (ICD-10-PCS; 2022-09-25)
PROC: 10D00Z1 Extraction of Products of Conception, Low, Open Approach (ICD-10-PCS; principal; 2022-09-25 08:00)
DX: O34.211 Maternal care for low transverse scar from previous cesarean delivery (principal); O98.32 Other infections with a predominantly sexual mode of transmission complicating childbirth; O99.354 Diseases of the nervous system complicating childbirth; A60.09 Herpesviral infection of other urogenital tract; O99.892 Other specified diseases and conditions complicating childbirth; G47.00 Insomnia, unspecified; K66.0 Peritoneal adhesions (postprocedural) (postinfection); Z30.2 Encounter for sterilization; Z87.891 Personal history of nicotine dependence; Z37.0 Single live birth; Z3A.39 39 weeks gestation of pregnancy; Z87.19 Personal history of other diseases of the digestive system
CPT/HCPCS: 80306; 85025; 86850; 86900; 86901; 88302